=== PATIENT | male | born 1980 | race Caucasian/White ===

== ENCOUNTER 2017-11-06 12:17 | Inpatient (IN) | payer SELFPAY ==
[~2017-11-06] VITALS: Ht 188 cm; Wt 184.3 kg
[~2017-11-06 12:17] MED LIST: AMOXICILLIN 50500 MG PO; CEPHALEXIN500 M1 PO; NAPROSYN500 MG PO; NORCO 325 MG-51 TAB PO
[2017-11-06] MEDS ORDERED: MULTI VITAMINS1 TAB PO (12:26)
[2017-11-06 12:34] LABS: COLLECTION METHOD CLEAN CATCH
[2017-11-06 12:44] LABS: MUCOUS Present /lpf; PH 7 (5-8); SQUAMOUS EPITHELIAL 0-2 /hpf; URINE APPEARANCE Clear; URINE BACTERIA None Seen /hpf; URINE BILIRUBIN Negative (NEGATIVE); URINE BLOOD Negative (NEGATIVE); URINE COLOR Straw; URINE GLUCOSE 3+ (NEGATIVE); URINE KETONE Negative (NEGATIVE); URINE LEUKOCYTE ESTERASE Negative (NEGATIVE); URINE NITRATE Negative (NEGATIVE); URINE PROTEIN(semi-quant) Negative (NEGATIVE); URINE RBC 0-2 /hpf; URINE UROBILINOGEN Negative (NEGATIVE)
[2017-11-06 12:52] LABS: BASO % 0.4 % (0.0-2.0); EOS # 0.1 (0.0-0.7); GRAN # 6.5 (1.4-6.5); GRAN % 68.3 % (42.2-75.2); HEMATOCRIT 51.4 % (42.0-52.0); LYMPH # 2.1 (1.2-3.4); LYMPH % 21.7 % (20.0-51.0); MEAN CELL VOLUME 89 fl (80.0-100.0); MEAN CORPUSCULAR HEMOGLOBIN 29 pg (27.0-31.0); MEAN CORPUSCULAR HGB CONC 33 g/dl (33.0-37.0); MEAN PLATELET VOLUME 12.1 fl (7.4-10.4); MONO # 0.8 (0.1-0.6); MONO % 8.2 % (1.7-9.3); PLATELET COUNT 137 K/mm3 (130-400); RED BLOOD COUNT 5.78 M/mm3 (4.20-5.60); REDCELL DISTRIBUTION WIDTH-CV 13.4 % (11.5-14.5)
[2017-11-06 13:04] LABS: ALBUMIN 4.1 gm/dL (3.5-5.0); BILIRUBIN,TOTAL 0.8 mg/dL (0.0-1.0); CALCIUM 9.6 mg/dL (8.4-10.2); CREATININE, serum 0.64 mg/dL (0.66-1.25); POTASSIUM 4.5 mmol/L (3.4-5.0)
[2017-11-06 17:04] VITALS: BP 149/90; PULSE 86; TEMP 98.5
[2017-11-06 17:09] LABS: MAGNESIUM 1.8 mg/dL (1.6-2.3); PHOSPHOROUS 3.5 mg/dL (2.5-4.5)
[2017-11-06 19:55] VITALS: BP 140/84; PULSE 84; TEMP 97.9
[2017-11-06 23:53] VITALS: BP 138/61; PULSE 70; TEMP 97.7
[2017-11-07 04:10] VITALS: BP 152/86; PULSE 77; TEMP 97.5
[2017-11-07 06:56] LABS: BASO % 0.3 % (0.0-2.0); EOS # 0.1 (0.0-0.7); EOS % 1.7 % (0-4.0); GRAN # 3.5 (1.4-6.5); GRAN % 59.8 % (42.2-75.2); HEMATOCRIT 47.4 % (42.0-52.0); HEMOGLOBIN 15.5 g/dl (13.5-18.0); LYMPH # 1.7 (1.2-3.4); LYMPH % 28.5 % (20.0-51.0); MEAN CELL VOLUME 90 fl (80.0-100.0); MEAN CORPUSCULAR HEMOGLOBIN 30 pg (27.0-31.0); MEAN CORPUSCULAR HGB CONC 33 g/dl (33.0-37.0); MONO # 0.5 (0.1-0.6); MONO % 8.8 % (1.7-9.3); PLATELET COUNT 110 K/mm3 (130-400); RED BLOOD COUNT 5.26 M/mm3 (4.20-5.60); REDCELL DISTRIBUTION WIDTH-CV 13.3 % (11.5-14.5)
[2017-11-07 07:05] LABS: CALCIUM 8.6 mg/dL (8.4-10.2); CREATININE, serum 0.59 mg/dL (0.66-1.25); POTASSIUM 4.1 mmol/L (3.4-5.0)
[2017-11-07 07:41] VITALS: BP 151/77; PULSE 78; TEMP 98.3
[2017-11-07 07:46] LABS: CHOLESTEROL RISK RATIO 9.8
[2017-11-07 11:23] VITALS: BP 138/75; PULSE 71; TEMP 98
[2017-11-07 15:12] VITALS: BP 148/86; PULSE 87; TEMP 98.5
[2017-11-07 19:45] VITALS: BP 117/64; PULSE 80; TEMP 98.1
[2017-11-08 00:48] VITALS: BP 104/62; PULSE 67; TEMP 97.9
[2017-11-08 04:45] VITALS: BP 111/65; PULSE 76; TEMP 97.9
[2017-11-08 07:28] LABS: BASO % 0.4 % (0.0-2.0); EOS # 0.1 (0.0-0.7); EOS % 1.4 % (0-4.0); GRAN # 2.9 (1.4-6.5); GRAN % 59.2 % (42.2-75.2); HEMATOCRIT 49.6 % (42.0-52.0); HEMOGLOBIN 16.4 g/dl (13.5-18.0); LYMPH # 1.4 (1.2-3.4); MEAN CELL VOLUME 90 fl (80.0-100.0); MEAN CORPUSCULAR HEMOGLOBIN 30 pg (27.0-31.0); MEAN CORPUSCULAR HGB CONC 33 g/dl (33.0-37.0); MEAN PLATELET VOLUME 11.9 fl (7.4-10.4); MONO # 0.5 (0.1-0.6); MONO % 9.2 % (1.7-9.3); PLATELET COUNT 116 K/mm3 (130-400); RED BLOOD COUNT 5.52 M/mm3 (4.20-5.60); REDCELL DISTRIBUTION WIDTH-CV 13.2 % (11.5-14.5)
[2017-11-08 07:56] VITALS: BP 152/77; PULSE 84; TEMP 97.8
[2017-11-08 08:54] LABS: CALCIUM 8.9 mg/dL (8.4-10.2); CREATININE, serum 0.61 mg/dL (0.66-1.25); POTASSIUM 4.6 mmol/L (3.4-5.0)
[2017-11-08] MEDS ORDERED: ZESTRIL 10MG10 MG PO (10:40)
[2017-11-08] MEDS ORDERED: EPA FISH OIL1 SGL PO (10:40)
[2017-11-08] MEDS ORDERED: ASPIRIN E.C. 8181 MG PO (10:41)
[2017-11-08] MEDS ORDERED: MEVACOR 20M20 MG/TAB PO (10:43)
[2017-11-08] MEDS ORDERED: INSULIN 70/3100 U/ML SQ (10:46)
[2017-11-08] MEDS ORDERED: GLUCOSE TEST ST1 DEV MC (10:48)
[2017-11-08] MEDS ORDERED: GLUCOPHAGE500 MG/TAB PO (10:50)
== END 2017-11-08 16:30 | disposition home or self-care (01) | DRG 638 ==
LOC: COL.ER 12:17 → MEDICAL 15:08
PROVIDERS: Emergency Medicine; Physician Assistant
DX: E11.65 Type 2 diabetes mellitus with hyperglycemia (principal); Z68.43 Body mass index [BMI] 50.0-59.9, adult; E87.1 Hypo-osmolality and hyponatremia; E66.01 Morbid (severe) obesity due to excess calories; I10 Essential (primary) hypertension; E87.8 Other disorders of electrolyte and fluid balance, not elsewhere classified
CPT/HCPCS: 99223-AI; 99232-AI; 99233-AI; 99239; J1644; J1815; J3480; J7030